=== PATIENT | female | born 1930 | race Caucasian/White ===

== ENCOUNTER 2020-04-02 13:10 | Emergency (ER) | payer MEDICARE ==
--- NOTE | 2020-04-02 13:40 | ERPHSYRPT ---
- History of Present Illness Time Seen by Provider: 04/02/20 13:25 Source: patient Exam Limitations: no limitations Patient Subjective Stated Complaint: PT states "There is something that does not work right.". Pt son states "she was at Dr. Roman on monday and they thought she had a UTI and she did have a mild one and they gaver her antibiotics but ever since, she is unsteady on her feet and just a little off." Triage Nursing Assessment: Pt presented alert and oriented X 3, skin pwd Pt ambulates with a slow steady gait, able to speak in clear full sentences. Pt has generalized weakness. Physician History: Patient is a 89-year-old female presents to our ED with complaints of generalized weakness for approximately 2 to 3 days. Patient states that she was diagnosed with UTI approximately 1 week ago. Patient is on day 6 of Bactrim. Patient states symptoms started after initiation of Bactrim. Patient denies pain. No nausea or vomiting. No diarrhea. Patient son states that patient has not been eating well. She has not been drinking very much. No falls or injury. No chest pain or shortness of breath. Symptoms are progressive. Symptoms are moderate in intensity. No specific worsening or improving factors. Patient voices no other complaints at this time. Timing/Duration: week(s) (1 week) Severity: moderate Modifying Factors: Improves With: other (No obvious modifying factors.) Associated Symptoms: weakness (Associated symptoms include anorexia generalized weakness), No nausea, No vomiting, No malaise Allergies/Adverse Reactions: No Known Drug Allergies Allergy (Unverified 04/02/20 13:35) Home Medications: Amlodipine Besylate 10 mg PO DAILY 04/02/20 [History] Enalapril Maleate 20 mg PO DAILY 04/02/20 [History] Metformin HCl 500 mg [Glucophage 500 MG] 500 mg PO DAILY 04/02/20 [History ] Metoprolol Tartrate 50 mg [Lopressor 50 MG] 50 mg PO DAILY 04/02/20 [ History] Pravastatin Sodium [Pravachol] 10 mg PO DAILY 04/02/20 [History] Smz/Tmp Ds Tablet [Bactrim Ds Tablet] 1 tab PO Q12H 04/02/20 [History] Spironolactone 25 mg PO DAILY 04/02/20 [History] hydroCHLOROthiazide [Hydrochlorothiazide] 12.5 mg PO DAILY 04/02/20 [History] Hx Tetanus, Diphtheria Vaccination/Date Given: No Hx Influenza Vaccination/Date Given: No Hx Pneumococcal Vaccination/Date Given: No Immunizations Up to Date: Yes Travel Risk - International Travel Have you traveled outside of the country in past 3 weeks: No Have you or anyone close to you been diagnosed with or: No Do your reside in a community with a known COVID-19 case?: Yes If Yes where:: [place] - Coronavirus Screening Has patient experienced Coronavirus symptoms: Yes Symptoms experienced: weakness - Review of Systems Constitutional: No Symptoms, No Fever, No Chills Eyes: No Symptoms Ears, Nose, & Throat: No Symptoms Respiratory: No Symptoms, No Cough, No Dyspnea Cardiac: No Symptoms, No Chest Pain, No Edema, No Syncope Abdominal/Gastrointestinal: No Symptoms, No Abdominal Pain, No Nausea, No Vomiting, No Diarrhea Genitourinary Symptoms: No Symptoms, No Dysuria Musculoskeletal: No Symptoms, No Back Pain, No Neck Pain Skin: No Symptoms, No Rash Neurological: No Symptoms, No Dizziness, No Focal Weakness, No Sensory Changes Psychological: No Symptoms Endocrine: No Symptoms Hematologic/Lymphatic: No Symptoms Immunological/Allergic: No Symptoms All Other Systems: Reviewed and Negative - Past Medical History Pertinent Past Medical History: Yes Neurological History: No Pertinent History ENT History: No Pertinent History Cardiac History: No Pertinent History, High Cholesterol, Hypertension Respiratory History: No Pertinent History Endocrine Medical History: Diabetes Type II Musculoskeletal History: Arthritis GI Medical History: No Pertinent History History: Renal Disease Psycho-Social History: Depression Female Reproductive Disorders: No Pertinent History - Past Surgical History Past Surgical History: Yes Other Surgical History: hysterectomy - Social History Smoking Status: Never smoker Exposure to second hand smoke: No Drug Use: none Patient Lives Alone: Yes - Female History Hx Now: No - Nursing Vital Signs Nursing Vital Signs: Initial Vital Signs Temperature 97.8 F 04/02/20 13:17 Pulse Rate 48 L 04/02/20 13:17 Respiratory Rate 22 04/02/20 13:17 Blood Pressure 144/50 04/02/20 13:17 O2 Sat by Pulse Oximetry 98 04/02/20 13:17 Pain Scale Pain Intensity 0 - Physical Exam General Appearance: no apparent distress, alert Eye Exam: PERRL/EOMI, eyes nml inspection Ears, Nose, Throat Exam: normal ENT inspection, TMs normal, pharynx normal, moist mucous membranes Neck Exam: normal inspection, non-tender, supple, full range of motion Respiratory Exam: normal breath sounds, lungs clear, No respiratory distress Cardiovascular Exam: regular rate/rhythm, normal heart sounds, normal peripheral pulses Gastrointestinal/Abdomen Exam: soft, normal bowel sounds, No tenderness, No mass Pelvic Exam: not done Rectal Exam: deferred Back Exam: normal inspection, normal range of motion, No CVA tenderness, No vertebral tenderness Extremity Exam: normal inspection, normal range of motion, pelvis stable Neurologic Exam: alert, oriented x 3, cooperative, normal mood/affect, nml cerebellar function, nml station & gait, sensation nml, No motor deficits, No slurred speech Skin Exam: normal color, warm, dry, No rash Lymphatic Exam: No adenopathy SpO2 Interpretation: normal SpO2: 98 O2 Delivery: Room Air - Course Nursing assessment & vital signs reviewed: Yes EKG Interpreted by Me: RATE (51), Sinus Jc, Left [place] Deviation, NORMAL INTERVALS - Radiology Exams Chest X-ray Interpretation: Teleradiologist Report (Nonacute chest with chronic features. Pulmonary calcified granulomas, osteopenia,) - CT Exams Head CT Interpretation: Tele-radiologist Report (Age-appropriate global atrophy and moderate periventricular degenerative micro-ischemia bilaterally. No acute intracranial hemorrhage, abnormal extra-axial fluid collection, or mass-effect. Fourth ventricle is midline without hydrocephalus. Bony calvarium intact. Visualized paranasal sinuses and mastoid air cells are clear. Nonacute senile brain.) Ordered Tests: Active Orders 24 hr Category Date Time Status Honing Machine Try Out Setter STAT Care 04/02/20 13:43 Active EKG-ER Only STAT Care 04/02/20 13:40 Active IV Insertion STAT Care 04/02/20 13:40 Active Pulse Oximetry (ED) STAT Care 04/02/20 13:40 Active CHEST 1 VIEW (PORTABLE) Stat Exams 04/02/20 13:42 Completed HEAD WITHOUT CONTRAST [CT] Stat Exams 04/02/20 13:45 Completed ABG [ARTERIAL BLOOD GASES] Routine Lab 04/02/20 14:38 Completed CBC W DIFF Stat Lab 04/02/20 13:46 Completed CMP Stat Lab 04/02/20 13:46 Completed ETHYL ALCOHOL Stat Lab 04/02/20 13:46 Completed MAGNESIUM Stat Lab 04/02/20 13:46 Completed TROPONIN Q3H Lab 04/02/20 13:46 Completed TROPONIN Q3H Lab 04/02/20 16:45 Ordered TROPONIN Q3H Lab 04/02/20 19:45 Ordered TROPONIN Q3H Lab 04/02/20 22:45 Ordered TROPONIN Q3H Lab 04/03/20 01:45 Ordered UA W/RFX UR CULTURE Stat Lab 04/02/20 Completed Transfer Order Routine Transfer 04/02/20 Ordered Medication Summary Generic Name Dose Route Start Last Admin Trade Name Freq PRN Reason Stop Dose Admin Sodium Chloride 1,000 mls @ 100 mls/hr 04/02/20 13:45 04/02/20 13:48 Sodium Chloride 0.9% 1000 Ml IV 05/02/20 13:44 100 mls/hr .Q10H NORM Administration Sodium Bicarbonate 75 meq/ 1,075 mls @ 100 mls/hr 04/02/20 15:00 Dextrose/Sodium Chloride IV 05/02/20 14:59 .[id number] NORM Discontinued Medications Generic Name Dose Route Start Last Admin Trade Name Freq PRN Reason Stop Dose Admin Albuterol Sulfate 2.5 mg 04/02/20 15:16 Proventil 2.5 Mg/3 Ml Neb IH 04/02/20 15:17 STAT ONE Calcium Gluconate 1,000 mg 04/02/20 14:49 Calcium Gluconate 10% 1000 Mg IV 04/02/20 14:50 STAT ONE Sodium Polystyrene Sulfonate 30 g 04/02/20 14:49 Kayexylate 15 Gm/60 Ml PO 04/02/20 14:50 STAT ONE Lab/Rad Data: Laboratory Result Diagrams 04/02/20 13:46 04/02/20 13:46 Laboratory Results 04/02/20 04/02/20 04/02/20 Range/Units Unknown 14:38 13:46 WBC (4.0-10.5) K/mm3 RBC (4.1-5.4) M/mm3 Hgb (12.0-16.0) gm/dl Hct (35-47) % MCV (78-100) fl MCH (26-32) pg MCHC (32-36) g/dl RDW (11.5-14.0) % Plt Count (150-450) K/mm3 MPV (7.5-11.0) fl Gran % (36.0-66.0) % Eos # (Auto) (0-0.5) Absolute Lymphs (auto) (1.0-4.6) Absolute Monos (auto) (0.0-1.3) Lymphocytes % (24.0-44.0) % Monocytes % (0.0-12.0) % Eosinophils % (0.00-5.0) % Basophils % (0.0-0.4) % Absolute Granulocytes (1.4-6.9) Basophils # (0-0.4) Puncture Site RIGHT BRACHIAL pCO2 29 L (35-45) mmHg pO2 82 (75-100) mmHg Base Excess -7.1 L (-2.0-2.0) O2 Saturation 95.3 (94-100) g/dF ABG pH 7.37 (7.35-7.45) ABG HCO3 16.8 L* (22-28) ABG O2 Sat (Measured) 97.5 (95-100) % Gavino Test yes A-a Gradient 31 a/A Ratio 0.73 Hemoglobin 12.0 Carboxyhemoglobin 1.0 (0.0-6.9) % THgb Methemoglobin 1.3 L (1.4-1.5) % Temperature 37.0 C POC O2 Flow Rate 21 % Sodium (137-145) mmol/L Potassium 6.9 H* (3.5-5.1) mmol/L Chloride (98-107) mmol/L Carbon Dioxide (22-30) mmol/L Anion Gap (5-15) MEQ/L BUN (7-17) mg/dL Creatinine (0.52-1.04) mg/dL Estimated GFR ML/MIN Glucose (74-106) mg/dL Calcium (8.4-10.2) mg/dL Magnesium (1.6-2.3) mg/dL Total Bilirubin (0.2-1.3) mg/dL AST (14-36) U/L ALT (0-35) U/L Alkaline Phosphatase (38-126) U/L Troponin I < 0.012 (0.000-0.034) ng/mL Serum Total Protein (6.3-8.2) g/dL Albumin (3.5-5.0) g/dL Urine Color YELLOW (YELLOW) Urine Appearance CLEAR (CLEAR) Urine pH 6.0 (5-6) Ur Specific [place] 1.016 (1.005-1.025) Urine Protein NEGATIVE (Negative) Urine Ketones NEGATIVE (NEGATIVE) Urine Blood NEGATIVE (0-5) Marcial/ul Urine Nitrite NEGATIVE (NEGATIVE) Urine Bilirubin NEGATIVE (NEGATIVE) Urine Urobilinogen NEGATIVE (0-1) mg/dL Ur Leukocyte Esterase NEGATIVE (NEGATIVE) Urine WBC (Auto) NONE (0-5) /HPF Urine RBC (Auto) NONE (0-2) /HPF U Epithel Cells (Auto) RARE (FEW) /HPF Urine Bacteria (Auto) NONE (NEGATIVE) /HPF Urine Culture Reflexed NO (NO) Urine Glucose NEGATIVE (NEGATIVE) mg/dL Ethyl Alcohol (0-10) mg/dL 04/02/20 04/02/20 Range/Units 13:46 13:46 WBC 7.2 (4.0-10.5) K/mm3 RBC 3.98 L (4.1-5.4) M/mm3 Hgb 12.5 (12.0-16.0) gm/dl Hct 37.6 (35-47) % MCV 94.5 (78-100) fl MCH 31.4 (26-32) pg MCHC 33.2 (32-36) g/dl RDW 12.8 (11.5-14.0) % Plt Count 312 (150-450) K/mm3 MPV 10.2 (7.5-11.0) fl Gran % 67.7 H (36.0-66.0) % Eos # (Auto) 0.11 (0-0.5) Absolute Lymphs (auto) 1.51 (1.0-4.6) Absolute Monos (auto) 0.66 (0.0-1.3) Lymphocytes % 20.9 L (24.0-44.0) % Monocytes % 9.1 (0.0-12.0) % Eosinophils % 1.5 (0.00-5.0) % Basophils % 0.8 (0.0-0.4) % Absolute Granulocytes 4.89 (1.4-6.9) Basophils # 0.06 (0-0.4) Puncture Site pCO2 (35-45) mmHg pO2 (75-100) mmHg Base Excess (-2.0-2.0) O2 Saturation (94-100) g/dF ABG pH (7.35-7.45) ABG HCO3 (22-28) ABG O2 Sat (Measured) (95-100) % Gavino Test A-a Gradient a/A Ratio Hemoglobin Carboxyhemoglobin (0.0-6.9) % THgb Methemoglobin (1.4-1.5) % Temperature C POC O2 Flow Rate % Sodium 133 L (137-145) mmol/L Potassium 6.6 H* (3.5-5.1) mmol/L Chloride 104 (98-107) mmol/L Carbon Dioxide 18 L (22-30) mmol/L Anion Gap 17.4 H (5-15) MEQ/L BUN 53 H (7-17) mg/dL Creatinine 2.48 H (0.52-1.04) mg/dL Estimated GFR 19.5 ML/MIN Glucose 98 (74-106) mg/dL Calcium 9.8 (8.4-10.2) mg/dL Magnesium 2.4 H (1.6-2.3) mg/dL Total Bilirubin 0.40 (0.2-1.3) mg/dL AST 43 H (14-36) U/L ALT 55 H (0-35) U/L Alkaline Phosphatase 51 (38-126) U/L Troponin I (0.000-0.034) ng/mL Serum Total Protein 8.0 (6.3-8.2) g/dL Albumin 4.6 (3.5-5.0) g/dL Urine Color (YELLOW) Urine Appearance (CLEAR) Urine pH (5-6) Ur Specific [place] (1.005-1.025) Urine Protein (Negative) Urine Ketones (NEGATIVE) Urine Blood (0-5) Marcial/ul Urine Nitrite (NEGATIVE) Urine Bilirubin (NEGATIVE) Urine Urobilinogen (0-1) mg/dL Ur Leukocyte Esterase (NEGATIVE) Urine WBC (Auto) (0-5) /HPF Urine RBC (Auto) (0-2) /HPF U Epithel Cells (Auto) (FEW) /HPF Urine Bacteria (Auto) (NEGATIVE) /HPF Urine Culture Reflexed (NO) Urine Glucose (NEGATIVE) mg/dL Ethyl Alcohol < 10 (0-10) mg/dL - Progress Progress: improved Progress Note: 04/02/20 15:13 Patient reassessed. She feels well. No change in neuro exam. No focal or lateralizing symptoms. Work-up reveals a hyperkalemia with the metabolic acidosis. Symptoms started after initiating Bactrim for urinary tract infection. UA today does not reveal UTI. Bactrim will be discontinued. It is possible that Bactrim is contributing to acute renal injury thereby causing hyperkalemia. Patient is also on potassium sparing diuretic, spironolactone, Case discussed with Dr. Deluca. Patient potassium is 6.9 on VBG. Patient will require nephrology consult. Nephrology is not immediately available. Patient will be transferred to [facility] for further evaluation and treatment. Case discussed with Dr. Duke of nephrology who accepts transfer to [facility]. Plan of care discussed with patient. Son at bedside during conversation. They both agreed to transfer to [facility] for further evaluation and treatment. We have initiated treatment for hyperkalemia. Patient received sodium bicarb, albuterol and Kayexalate, I/G. 04/02/20 15:[address] Quinton Will see patient in: other (Patient will be transferred to [facility] for further evaluation and treatment. Dr. Duke accepting physician at [facility].) Counseled pt/family regarding: lab results, diagnosis, need for follow-up, rad results - Departure Departure Disposition: Transfer Clinical Impression: Generalized weakness, Hyperkalemia, Breast mass, right, DJD (degenerative joint disease), Scoliosis, Osteopenia, Calcified granuloma of lung, Acute renal injury, Metabolic acidosis, Dehydration, Anorexia, Bradycardia, Left axis deviation Condition: Stable Critical Care Time: Yes Critical Care Time(excluding separately billable procedures): Critical 75-104 mins Referrals: NEEMA ROMAN MD [Primary Care Provider] -
[2020-04-02] MEDS ORDERED: Sodium Chloride 0.9% 1000 ML 1,000 ML IV SCH (13:45)
[2020-04-02] MEDS ORDERED: Sodium Chloride 0.9% 1000 ML 1,000 ML ONE (13:47)
[2020-04-02 13:59] LABS: ALBUMIN 4.6 g/dL (3.5-5.0); ALKALINE PHOSPHATASE 51 U/L (38-126); ANION GAP 17.4 MEQ/L (5-15); BLOOD UREA NITROGEN 53 mg/dL (7-17); CHLORIDE 104 mmol/L (98-107); Calcium 9.8 mg/dL (8.4-10.2); Carbon Dioxide 18 mmol/L (22-30); Creatinine 1 2.48 mg/dL (0.52-1.04); Glucose 98 mg/dL (74-106); MAGNESIUM 2.4 mg/dL (1.6-2.3); SGOT/AST 43 U/L (14-36); SGPT/ALT 55 U/L (0-35); SODIUM 133 mmol/L (137-145)
[2020-04-02 14:02] LABS: Absolute Neutrophil Ct (ANC) 4.89 (1.4-6.9); BASOPHIL % 0.8 % (0.0-0.4); Basophil (Absolute #) 0.06 (0-0.4); Eosinophil % 1.5 % (0.00-5.0); Eosinophil (Absolute #) 0.11 (0-0.5); Hematocrit 37.6 % (35-47); Hemoglobin 12.5 gm/dl (12.0-16.0); Lymphocyte (Absolute #) 1.51 (1.0-4.6); Lymphocytes % 20.9 % (24.0-44.0); Mean Cell Volume 94.5 fl (78-100); Mean Corpuscular Hemoglobin 31.4 pg (26-32); Mean Corpuscular Hgb Concent. 33.2 g/dl (32-36); Mean Platelet Volume 10.2 fl (7.5-11.0); Monocyte (Absolute #) 0.66 (0.0-1.3); Monocytes % 9.1 % (0.0-12.0); Neutrophil % 67.7 % (36.0-66.0); Platelet Count 312 K/mm3 (150-450); Red Blood Count 3.98 M/mm3 (4.1-5.4); Red Cell Distribution Width 12.8 % (11.5-14.0); White Blood Count 7.2 K/mm3 (4.0-10.5)
[2020-04-02 14:18] LABS: ETHYL ALCOHOL < 10 mg/dL (0-10); Potassium 6.6 mmol/L (3.5-5.1)
--- NOTE | 2020-04-02 14:18 | XRAY ---
Indication: Weakness. Comparison: None Portable chest clear with a few incidental hilar/pulmonary calcified granulomas. Heart is not enlarged. Bony thorax intact with mild osteopenia, degenerative changes, and scoliosis. Impression: Nonacute chest with chronic features.
--- NOTE | 2020-04-02 14:21 | XRAY ---
Indication: Weakness and disorientation. Multiple contiguous axial images obtained through the head without contrast. Comparison: October 09, 2019. Again age-appropriate global atrophy and moderate periventricular degenerative micro-ischemia bilaterally. No acute intracranial hemorrhage, abnormal extra-axial fluid collection, or mass effect. Fourth ventricle is midline without hydrocephalus. Bony calvarium intact. Visualized paranasal sinuses and mastoid air cells are clear. Impression: Continued nonacute senile brain.
[2020-04-02 14:28] LABS: Appearance CLEAR (CLEAR); Bilirubin NEGATIVE (NEGATIVE); Blood NEGATIVE Ery/ul (0-5); Epithelial Cells RARE /HPF (FEW); Glucose NEGATIVE (NEGATIVE); Ketones NEGATIVE (NEGATIVE); Leukocyte Esterase NEGATIVE (NEGATIVE); Nitrite NEGATIVE (NEGATIVE); Protein,Urine Dip NEGATIVE (Negative); Specific Gravity 1.016 (1.005-1.025); Urobilinogen NEGATIVE mg/dL (0-1)
[2020-04-02 14:39] LABS: A-aADO2 31; ABG POTASSIUM 6.9 (3.5-5.1); ARTERIAL BLD GAS O2 SATURATION 97.5 % (95-100); ARTERIAL BLOOD GAS BASE EXCESS -7.1 (-2.0-2.0); ARTERIAL BLOOD GAS FIO2 21 %; ARTERIAL BLOOD GAS PCO2 29 mmHg (35-45); ARTERIAL BLOOD GAS PO2 82 mmHg (75-100); ARTERIAL BLOOD GAS pH 7.37 (7.35-7.45); HCO3- 16.8 (22-28); HGB O2 SAT 95.3 g/dF (94-100); Methhemoglobin 1.3 % (1.4-1.5); paO2 pAO1 0.73
[2020-04-02 14:40] LABS: ABG SITE RIGHT BRACHIAL; ALLEN TEST OK? yes
[2020-04-02] MEDS ORDERED: Calcium Gluconate 10% 1000 MG IV ONE ×2 (14:49→15:37)
[2020-04-02] MEDS ORDERED: Kayexylate 15 GM/60 ML PO ONE (14:49)
[2020-04-02] MEDS ORDERED: SODIUM BICARBONATE IV SCH (15:00)
[2020-04-02] MEDS ORDERED: [UNRECOGNIZED DRUG - OTHER] IV SCH (15:00)
[2020-04-02] MEDS ORDERED: PROVENTIL 2.5 MG/3 ML NEB IH ONE ×2 (15:16→15:22)
[2020-04-02] MEDS ORDERED: HUMULIN R SQ ONE (15:19)
[2020-04-02] MEDS ORDERED: D50W 50 ml Abboject IV ONE ×2 (15:19→15:38)
[2020-04-02] MEDS ORDERED: Kayexylate 15 GM/60 ML ONE (15:38)
[2020-04-02] MEDS ORDERED: HUMULIN R ONE (15:38)
[2020-04-02 16:09] VITALS: BP 139/57; PULSE 52; O2SAT 98
== END 2020-04-02 16:31 | disposition short-term general hospital (02) ==
LOC: ED 13:10
DX: R53.1 Weakness (principal); E87.5 Hyperkalemia; N63.0 Unspecified lump in unspecified breast; N63.10 Unspecified lump in the right breast, unspecified quadrant; M19.90 Unspecified osteoarthritis, unspecified site; M41.9 Scoliosis, unspecified; M85.80 Other specified disorders of bone density and structure, unspecified site; J84.10 Pulmonary fibrosis, unspecified; S37.009A Unspecified injury of unspecified kidney, initial encounter; E87.2 Acidosis; E86.0 Dehydration; R63.0 Anorexia; R00.1 Bradycardia, unspecified; J34.2 Deviated nasal septum; Z79.899 Other long term (current) drug therapy; E78.00 Pure hypercholesterolemia, unspecified; I10 Essential (primary) hypertension; E11.9 Type 2 diabetes mellitus without complications
CPT/HCPCS: 36600; 70450; 80053; 81001; 82375; 82803; 83735; 84484; 85025; 93005; 93041; 94640; 94760; 96360; 96361; 96365; 96372; 96374; 96375; 99291; 99292; G0480; 36415; 71045; 80307; 99285; J0610; J1815; J7609; A9270-GY

== ENCOUNTER 2020-06-24 21:51 | Emergency (ER) | payer MEDICARE ==
--- NOTE | 2020-06-24 22:02 | ERPHSYRPT ---
- History of Present Illness Time Seen by Provider: 06/24/20 22:02 Source: patient, EMS Exam Limitations: clinical condition (Patient has significant dementia) Physician History: This is an 89-year-old white female patient of Dr. Roman, with complaints of weakness, confusion and dysuria. Patient tested positive for the COVID-19 approximately 12 days ago. She has no respiratory symptoms no cough no fever. Patient complains primarily of weakness, confusion and dysuria. Patient was recently discharged, 06/16/2020, from [facility]. During that stay they were evaluating her for anemia, abdominal pain, chronic kidney disease, hypertension sinus bradycardia and generalized weakness. The patient is a poor historian because of her dementia. The patient lives with her granddaughter. Her granddaughter states that patient was at home with them this evening and had not taken her evening medications yet. The patient complained to her granddaughter that she just was not feeling well. When asked what was her symptoms she initially said I do not know I just do not feel right. The ambulance service was contacted and the patient told them the above-stated symptoms. Patient denies chest pain or shortness of breath. Timing/Duration: today Severity: mild Associated Symptoms: weakness, other (Confusion and dysuria) Allergies/Adverse Reactions: No Known Drug Allergies Allergy (Verified 06/24/20 23:16) Home Medications: Amlodipine Besylate 10 mg PO HS 04/02/20 [History] Metoprolol Tartrate 50 mg [Lopressor 50 MG] 25 mg PO BID 04/02/20 [History] Pravastatin Sodium [Pravachol] 10 mg PO DAILY 04/02/20 [History] Acetaminophen/Diphenhydramine [Tylenol Pm Ex-Strength Caplet] 1 each PO HS 06/24/20 [History] Aspirin EC 81 mg [Ecotrin 81 mg] 81 mg PO DAILY 06/24/20 [History] Donepezil HCl [Aricept] 5 mg PO HS 06/24/20 [History] PANTOPRAZOLE 40 mg Tablet [Protonix 40MG Tablet] 40 mg PO QAM 06/24/20 [History] Hx Tetanus, Diphtheria Vaccination/Date Given: No Hx Influenza Vaccination/Date Given: No Hx Pneumococcal Vaccination/Date Given: No Travel Risk - International Travel Have you traveled outside of the country in past 3 weeks: No - Coronavirus Screening Are you exhibiting any of the following symptoms?: No Close contact with a COVID-19 positive Pt in past 14-21 Days: Yes - Review of Systems Constitutional: Weakness Eyes: No Symptoms Ears, Nose, & Throat: No Symptoms Respiratory: No Symptoms Cardiac: No Symptoms Abdominal/Gastrointestinal: No Symptoms Genitourinary Symptoms: Dysuria Musculoskeletal: No Symptoms Skin: No Symptoms Neurological: Other (Infusion) Psychological: No Symptoms (Dr. Willis) Endocrine: No Symptoms Hematologic/Lymphatic: No Symptoms Immunological/Allergic: No Symptoms All Other Systems: Reviewed and Negative - Past Medical History Pertinent Past Medical History: Yes Neurological History: No Pertinent History ENT History: No Pertinent History Cardiac History: No Pertinent History, High Cholesterol, Hypertension Respiratory History: No Pertinent History Endocrine Medical History: Diabetes Type II Musculoskeletal History: Arthritis GI Medical History: No Pertinent History History: Renal Disease Psycho-Social History: Depression Female Reproductive Disorders: No Pertinent History - Past Surgical History Past Surgical History: Yes Other Surgical History: hysterectomy - Social History Smoking Status: Never smoker Exposure to second hand smoke: No Drug Use: none Patient Lives Alone: Yes - Nursing Vital Signs Nursing Vital Signs: Initial Vital Signs Temperature 98.9 F 06/24/20 21:53 Pulse Rate 74 06/24/20 21:53 Respiratory Rate 22 06/24/20 21:53 Blood Pressure 175/78 06/24/20 21:53 O2 Sat by Pulse Oximetry 99 06/24/20 21:53 Pain Scale Pain Intensity 8 - Physical Exam General Appearance: no apparent distress, alert, anxiety Eye Exam: PERRL/EOMI, eyes nml inspection Ears, Nose, Throat Exam: normal ENT inspection, moist mucous membranes Neck Exam: normal inspection, non-tender, supple, full range of motion Respiratory Exam: normal breath sounds, lungs clear, airway intact, No chest tenderness, No respiratory distress Cardiovascular Exam: regular rate/rhythm, normal heart sounds, normal peripheral pulses Gastrointestinal/Abdomen Exam: soft, normal bowel sounds, tenderness (Mild generalized), No guarding, No rebound Pelvic Exam: not done Rectal Exam: not done Back Exam: normal inspection, normal range of motion, No CVA tenderness, No vertebral tenderness Extremity Exam: normal inspection, normal range of motion, pelvis stable Neurologic Exam: alert, cooperative, monitor tech II-XII nml as tested, disoriented, confusion, other Skin Exam: normal color, warm, dry Lymphatic Exam: No adenopathy SpO2 Interpretation: normal O2 Delivery: Room Air - Course Nursing assessment & vital signs reviewed: Yes EKG Interpreted by Me: RATE (63), Sinus Rhythm, NORMAL AXIS, NORMAL INTERVALS, NORMAL QRS, Other (Only change from comparison EKG dated 04/02/2020 is there is now normal axis instead of left axis deviation) Ordered Tests: Active Orders 24 hr Category Date Time Status Pairer Inspector STAT Care 06/24/20 22:03 Active EKG-ER Only STAT Care 06/24/20 22:02 Active IV Insertion STAT Care 06/24/20 22:02 Active Pulse Oximetry (ED) STAT Care 06/24/20 22:02 Active ABDOMEN AND PELVIS W/0 CONTRAS [CT] Stat Exams 06/24/20 22:30 Taken HEAD WITHOUT CONTRAST [CT] Stat Exams 06/24/20 22:06 Taken BLOOD CULTURE Stat Lab 06/24/20 22:36 Received CBC W DIFF Stat Lab 06/24/20 22:35 Completed CMP Stat Lab 06/24/20 22:35 Completed Lactic Acid Stat Lab 06/24/20 22:20 Completed MAGNESIUM Stat Lab 06/24/20 22:35 Completed TROPONIN Q3H Lab 06/24/20 22:35 Completed TROPONIN Q3H Lab 06/25/20 01:15 Ordered TROPONIN Q3H Lab 06/25/20 04:15 Ordered TROPONIN Q3H Lab 06/25/20 07:15 Ordered TROPONIN Q3H Lab 06/25/20 10:15 Ordered UA W/RFX UR CULTURE Stat Lab 06/24/20 22:51 Completed Medication Summary Generic Name Dose Route Start Last Admin Trade Name Freq PRN Reason Stop Dose Admin Sodium Chloride 1,000 mls @ 100 mls/hr 06/24/20 22:15 06/24/20 22:13 Sodium Chloride 0.9% 1000 Ml IV 07/24/20 22:14 100 mls/hr .Q10H NORM Administration Discontinued Medications Generic Name Dose Route Start Last Admin Trade Name Freq PRN Reason Stop Dose Admin Metoprolol Tartrate 2.5 mg 06/24/20 22:44 Lopressor 5 Mg/5 Ml Injection IV 06/24/20 22:45 STAT ONE Metoprolol Tartrate Confirm 06/24/20 23:24 Lopressor 5 Mg/5 Ml Injection Administered 06/24/20 23:25 Dose 5 mg IV .STK-MED ONE Quetiapine Fumarate 25 mg 06/24/20 22:44 Seroquel 25 Mg PO 06/24/20 22:45 STAT ONE Lab/Rad Data: Laboratory Result Diagrams 06/24/20 22:35 06/24/20 22:35 Laboratory Results 06/24/20 06/24/20 06/24/20 Range/Units 22:51 22:35 22:35 WBC (4.0-10.5) K/mm3 RBC (4.1-5.4) M/mm3 Hgb (12.0-16.0) gm/dl Hct (35-47) % MCV (78-100) fl MCH (26-32) pg MCHC (32-36) g/dl RDW (11.5-14.0) % Plt Count (150-450) K/mm3 MPV (7.5-11.0) fl Gran % (36.0-66.0) % Eos # (Auto) (0-0.5) Absolute Lymphs (auto) (1.0-4.6) Absolute Monos (auto) (0.0-1.3) Lymphocytes % (24.0-44.0) % Monocytes % (0.0-12.0) % Eosinophils % (0.00-5.0) % Basophils % (0.0-0.4) % Absolute Granulocytes (1.4-6.9) Basophils # (0-0.4) Sodium 139 (137-145) mmol/L Potassium 4.4 (3.5-5.1) mmol/L Chloride 106 (98-107) mmol/L Carbon Dioxide 24 (22-30) mmol/L Anion Gap 13.9 (5-15) MEQ/L BUN 34 H (7-17) mg/dL Creatinine 1.35 H (0.52-1.04) mg/dL Estimated GFR 39.3 ML/MIN Glucose 114 H (74-106) mg/dL Lactic Acid (0.4-2.0) Calcium 9.7 (8.4-10.2) mg/dL Magnesium 2.0 (1.6-2.3) mg/dL Total Bilirubin 0.50 (0.2-1.3) mg/dL AST 32 (14-36) U/L ALT 28 (0-35) U/L Alkaline Phosphatase 67 (38-126) U/L Troponin I 0.016 (0.000-0.034) ng/mL Serum Total Protein 7.6 (6.3-8.2) g/dL Albumin 4.4 (3.5-5.0) g/dL Urine Color STRAW (YELLOW) Urine Appearance CLEAR (CLEAR) Urine pH 9.0 (5-6) Ur Specific [place] 1.009 (1.005-1.025) Urine Protein NEGATIVE (Negative) Urine Ketones NEGATIVE (NEGATIVE) Urine Blood NEGATIVE (0-5) Marcial/ul Urine Nitrite NEGATIVE (NEGATIVE) Urine Bilirubin NEGATIVE (NEGATIVE) Urine Urobilinogen NEGATIVE (0-1) mg/dL Ur Leukocyte Esterase NEGATIVE (NEGATIVE) Urine WBC (Auto) NONE SEEN (0-5) /HPF Urine RBC (Auto) NONE (0-2) /HPF U Epithel Cells (Auto) NONE (FEW) /HPF Urine Bacteria (Auto) NONE SEEN (NEGATIVE) /HPF Urine Mucus (Auto) SLIGHT (NEGATIVE) /HPF Urine Culture Reflexed NO (NO) Urine Glucose NEGATIVE (NEGATIVE) mg/dL 06/24/20 06/24/20 Range/Units 22:35 22:20 WBC 4.9 (4.0-10.5) K/mm3 RBC 3.77 L (4.1-5.4) M/mm3 Hgb 11.5 L (12.0-16.0) gm/dl Hct 35.4 (35-47) % MCV 93.9 (78-100) fl MCH 30.5 (26-32) pg MCHC 32.5 (32-36) g/dl RDW 12.7 (11.5-14.0) % Plt Count 305 (150-450) K/mm3 MPV 10.1 (7.5-11.0) fl Gran % 45.3 (36.0-66.0) % Eos # (Auto) 0.16 (0-0.5) Absolute Lymphs (auto) 1.77 (1.0-4.6) Absolute Monos (auto) 0.70 (0.0-1.3) Lymphocytes % 36.3 (24.0-44.0) % Monocytes % 14.3 H (0.0-12.0) % Eosinophils % 3.3 (0.00-5.0) % Basophils % 0.8 (0.0-0.4) % Absolute Granulocytes 2.21 (1.4-6.9) Basophils # 0.04 (0-0.4) Sodium (137-145) mmol/L Potassium (3.5-5.1) mmol/L Chloride (98-107) mmol/L Carbon Dioxide (22-30) mmol/L Anion Gap (5-15) MEQ/L BUN (7-17) mg/dL Creatinine (0.52-1.04) mg/dL Estimated GFR ML/MIN Glucose (74-106) mg/dL Lactic Acid 1.7 (0.4-2.0) Calcium (8.4-10.2) mg/dL Magnesium (1.6-2.3) mg/dL Total Bilirubin (0.2-1.3) mg/dL AST (14-36) U/L ALT (0-35) U/L Alkaline Phosphatase (38-126) U/L Troponin I (0.000-0.034) ng/mL Serum Total Protein (6.3-8.2) g/dL Albumin (3.5-5.0) g/dL Urine Color (YELLOW) Urine Appearance (CLEAR) Urine pH (5-6) Ur Specific [place] (1.005-1.025) Urine Protein (Negative) Urine Ketones (NEGATIVE) Urine Blood (0-5) Marcial/ul Urine Nitrite (NEGATIVE) Urine Bilirubin (NEGATIVE) Urine Urobilinogen (0-1) mg/dL Ur Leukocyte Esterase (NEGATIVE) Urine WBC (Auto) (0-5) /HPF Urine RBC (Auto) (0-2) /HPF U Epithel Cells (Auto) (FEW) /HPF Urine Bacteria (Auto) (NEGATIVE) /HPF Urine Mucus (Auto) (NEGATIVE) /HPF Urine Culture Reflexed (NO) Urine Glucose (NEGATIVE) mg/dL - Progress Progress: unchanged Progress Note: 06/25/20 00:04 CAT scan of head reveals no acute intracranial abnormality CAT scan of abdomen pelvis reveals no acute intra-abdominal abnormality Counseled pt/family regarding: lab results, diagnosis, need for follow-up, rad results - Departure Departure Disposition: Home Clinical Impression: Confusion, Abdominal pain, Hypertension Condition: Stable Critical Care Time: No Referrals: NEEMA ROMAN MD [Primary Care Provider] - Additional Instructions: Take medication as prescribed. Follow-up with her primary care physician for further management of symptoms.
[2020-06-24] MEDS ORDERED: Sodium Chloride 0.9% 1000 ML 1,000 ML ONE (22:11)
[2020-06-24] MEDS ORDERED: Sodium Chloride 0.9% 1000 ML 1,000 ML IV SCH (22:15)
[2020-06-24 22:39] LABS: Absolute Neutrophil Ct (ANC) 2.21 (1.4-6.9); BASOPHIL % 0.8 % (0.0-0.4); Basophil (Absolute #) 0.04 (0-0.4); Eosinophil % 3.3 % (0.00-5.0); Eosinophil (Absolute #) 0.16 (0-0.5); Hematocrit 35.4 % (35-47); Hemoglobin 11.5 gm/dl (12.0-16.0); Lymphocyte (Absolute #) 1.77 (1.0-4.6); Lymphocytes % 36.3 % (24.0-44.0); Mean Cell Volume 93.9 fl (78-100); Mean Corpuscular Hemoglobin 30.5 pg (26-32); Mean Corpuscular Hgb Concent. 32.5 g/dl (32-36); Mean Platelet Volume 10.1 fl (7.5-11.0); Monocytes % 14.3 % (0.0-12.0); Neutrophil % 45.3 % (36.0-66.0); Platelet Count 305 K/mm3 (150-450); Red Blood Count 3.77 M/mm3 (4.1-5.4); Red Cell Distribution Width 12.7 % (11.5-14.0); White Blood Count 4.9 K/mm3 (4.0-10.5)
[2020-06-24] MEDS ORDERED: LOPRESSOR 5 MG/5 ML INJECTION IV ONE ×2 (22:44→23:24)
[2020-06-24] MEDS ORDERED: Seroquel 25 MG PO ONE (22:44)
[2020-06-24 22:52] LABS: ALBUMIN 4.4 g/dL (3.5-5.0); ANION GAP 13.9 MEQ/L (5-15); BILIRUBIN,TOTAL 0.5 mg/dL (0.2-1.3); Calcium 9.7 mg/dL (8.4-10.2); Creatinine 1 1.35 mg/dL (0.52-1.04); EST GLOMERULAR FILTRATION RATE 39.3 ML/MIN; Potassium 4.4 mmol/L (3.5-5.1); Total Protein 7.6 g/dL (6.3-8.2)
[2020-06-24 22:57] LABS: Appearance CLEAR (CLEAR); Bilirubin NEGATIVE (NEGATIVE); Blood NEGATIVE Ery/ul (0-5); Glucose NEGATIVE (NEGATIVE); Ketones NEGATIVE (NEGATIVE); Leukocyte Esterase NEGATIVE (NEGATIVE); Mucus SLIGHT /HPF (NEGATIVE); Nitrite NEGATIVE (NEGATIVE); Protein,Urine Dip NEGATIVE (Negative); Specific Gravity 1.009 (1.005-1.025); Urobilinogen NEGATIVE mg/dL (0-1)
[2020-06-24 22:59] LABS: Bacteria NONE SEEN /HPF (NEGATIVE); WBC NONE SEEN /HPF (0-5)
[2020-06-25 00:25] VITALS: BP 131/79; PULSE 71; O2SAT 97
--- NOTE | 2020-06-25 08:58 | XRAY ---
Indication: Confusion. Multiple contiguous axial images obtained through the head without contrast. Comparison: April 02, 2020. Again age-appropriate global atrophy and moderate periventricular degenerative micro-ischemia bilaterally. No acute intracranial hemorrhage, abnormal extra-axial fluid collection, or mass effect. Fourth ventricle is midline without hydrocephalus. Bony calvarium intact. Visualized paranasal sinuses and mastoid air cells are clear. Impression: Continued nonacute senile brain. Comment: Preliminary interpretation was made by [facility]. No critical discrepancy.
--- NOTE | 2020-06-25 09:03 | XRAY ---
Indication: Abdomen pain. Multiple contiguous axial images obtained through the abdomen and pelvis without contrast as ordered. Comparison: None. Lung bases demonstrates minimal bibasilar atelectasis/scarring and a few calcified granulomas. No infiltrate or effusion. Heart is not enlarged. [place] left hilar calcified node. Noncontrasted stomach and bowel loops appear nonobstructed. Left kidney demonstrates 6.4 cm mid to lower pole cyst and a 6 mm upper pole round hyperdense cyst. Right mid kidney demonstrates 3 mm benign-appearing cortical calcification. Tiny splenic calcified granuloma. Urinary bladder decompressed with Blake catheter in situ. Presumed hysterectomy. No free fluid/air. Remaining liver, gallbladder, pancreas, spleen, adrenal glands, kidneys, ureters, and bladder are unremarkable for noncontrast exam. Mild scattered aortoiliac calcifications without AAA. Osseous structures intact with osteopenia, moderate levorotoscoliosis, mild/moderate L2 level thoracolumbar degenerative spondylosis, and remote appearing L4 superior endplate fracture with approximately 50% height loss. Impression: 1. Left renal 6.4 cm cyst and a 6 mm hyperdense cyst. Right renal benign-appearing cortical punctate calcification. 2. Blake catheter in situ, old granulomatous disease, and chronic bony findings. 3. Remaining CT abdomen/pelvis without contrast exam is negative. Comment: Preliminary interpretation was made by [facility]. No critical discrepancy.
== END 2020-06-25 00:45 | disposition home or self-care (01) ==
LOC: ED 21:51
DX: R41.0 Disorientation, unspecified (principal); R10.9 Unspecified abdominal pain; I10 Essential (primary) hypertension
CPT/HCPCS: 36000; 36415; 51702; 70450; 74176; 80053; 81001; 83605; 83735; 84484; 85025; 87040; 93005; 93041; 94760; 96360; 96361; 99284; A9270-GY